=== PATIENT | male | born 1980 | race Caucasian/White ===

== ENCOUNTER 2017-01-21 00:08 | Emergency (ER) | payer OTHER, BC ==
[~2017-01-21] VITALS: Ht 185.4 cm; Wt 103.0 kg
[~2017-01-21 00:08] MED LIST: NO MEDS; ZOFRAN4 MG PO
[2017-01-21 01:20] VITALS: BP 178/82
== END 2017-01-21 01:21 | disposition home or self-care (01) ==
LOC: EXP 00:08 → EME 00:08 → EXP 01:21
PROC: 3E0234Z Introduction of Serum, Toxoid and Vaccine into Muscle, Percutaneous Approach (ICD-10-PCS; principal; 2017-01-21)
PROC: 0HQ0XZZ Repair Scalp Skin, External Approach (ICD-10-PCS; principal; 2017-01-21)
DX: S01.01XA Laceration without foreign body of scalp, initial encounter (principal); W22.8XXA Striking against or struck by other objects, initial encounter; Y99.0 Civilian activity done for income or pay; Z23 Encounter for immunization
CPT/HCPCS: 99281; 99284

== ENCOUNTER 2017-11-13 17:05 | Emergency (ER) | payer BC ==
[~2017-11-13] VITALS: Ht 185.4 cm; Wt 100.9 kg
[2017-11-13 17:55] LABS: HEMATOCRIT 46.2 % (38.0-50.0); MCH 29.7 PG (29.0-34.0); MCHC 34.6 G/DL (30.0-36.0); MCV 85.7 FL (86-99); PLATELET COUNT 183 K/uL (156-360); RBC DIS.WIDTH-CV 12.4 % (11.8-14.6); RBC DIS.WIDTH-SD 38.6 % (39-53); RED BLOOD COUNT 5.39 M/uL (4.00-5.50); WHITE BLOOD COUNT 10.3 K/uL (4.1-10.2)
[2017-11-13 18:08] LABS: ALBUMIN 4.3 g/dL (3.2-4.8); CHLORIDE 106 mEq/L (99-109); POTASSIUM 4.2 mEq/L (3.7-5.4); SODIUM 139 mEq/L (136-147)
[2017-11-13 18:10] LABS: GLUCOSE 95 mg/dL (70-99)
[2017-11-13 18:12] LABS: TOTAL BILIRUBIN 0.8 mg/dL (0.0-1.0)
[2017-11-13 18:14] LABS: ALKALINE PHOSPHATASE 89 IU/L (3-129); CREATININE 1.3 mg/dL (0.6-1.3); GFR ESTIMATE (CALCULATED) > 59 mL/min/ (58.99-99999)
[2017-11-13 18:15] LABS: UREA NITROGEN (BUN) 15 mg/dL (9-23)
[2017-11-13 18:16] LABS: AST (GOT) 19 IU/L (2-34)
[2017-11-13 18:17] LABS: ALT (GPT) 35 IU/L (3-49)
[2017-11-13] MEDS ORDERED: PHENERGAN25 MG PR (19:18)
[2017-11-13 20:02] VITALS: BP 132/76
== END 2017-11-13 20:05 | disposition home or self-care (01) ==
LOC: RME 17:05 → EME 17:05 → RME 20:05
PROVIDERS: Physician Assistant Medical
DX: R11.2 Nausea with vomiting, unspecified (principal); R51 Headache; R10.32 Left lower quadrant pain; R09.89 Other specified symptoms and signs involving the circulatory and respiratory systems; K42.9 Umbilical hernia without obstruction or gangrene
CPT/HCPCS: 71046; 74177; 80053; 81003; 85027; 99281; 99285; J2765; J7030